=== PATIENT | male | born 1975 ===

== ENCOUNTER 2017-12-07 00:28 | Day surgery (SDC) | payer OTHER ==
[~2017-12-07] VITALS: Ht 193 cm; Wt 118.8 kg
[~2017-12-07 00:28] MED LIST: HYDR-385 PO
[2017-12-07 12:06] VITALS: BP 139/86
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
[2017-12-07] MEDS ORDERED: ceFAZolin(*) 2GM/D5W 50ML 50 ML IVPB ONE (12:30)
[2017-12-07] MEDS ORDERED: NORMOSOL R SOLN(*) 1000 ML BAG 1,000 ML IV PRN (12:30)
[2017-12-07] MEDS ORDERED: MIDAZOLAM 2 MG/2 ML VIAL IVP PRN (12:30)
[2017-12-07] MEDS ORDERED: FAMOTIDINE 20 MG TAB PO ONE (12:30)
[2017-12-07] MEDS ORDERED: CELECOXIB 200 MG CAP PO ONE (12:30)
[2017-12-07] MEDS ORDERED: LIDOCAINE/SOD BICARB 8.4% SYR ID ONE (12:30)
[2017-12-07] MEDS ORDERED: ROPIVACAINE 0.2% 20 ML VIAL ONE (12:38)
[2017-12-07] MEDS ORDERED: fentaNYL CITR 100 MCG/2 ML AMP ONE ×3 (14:22→16:59)
[2017-12-07] MEDS ORDERED: BACITRACIN/POLYMY B OINT 15 GM TP ONE (15:42)
[2017-12-07] MEDS ORDERED: PROPOFOL EMUL(*) 10MG/ML 20 ML 40 ML ONE (16:20)
[2017-12-07] MEDS ORDERED: ONDANSETRON 4 MG/2 ML VIAL ONE (16:20)
[2017-12-07] MEDS ORDERED: DEXAMETHASONE SOD PHOS 10MG/ML ONE (16:20)
[2017-12-07] MEDS ORDERED: KETOROLAC 30 MG/ML VIAL ONE (16:20)
[2017-12-07] MEDS ORDERED: PER PO ×3 (17:00→17:03)
[2017-12-07] MEDS ORDERED: CEPH500T7 PO ×2 (17:00→17:04)
--- NOTE | 2017-12-07 17:05 | OPERATIVE REPORT 1 ---
EVENT DATE: December 07, 2017 SURGEON: Joel Motley MD ANESTHESIOLOGIST: Minh Abreu MD ANESTHESIA: General. GEAR CODING MACHINE OPERATOR: Pedro Santoyo PA-C PREOPERATIVE DIAGNOSIS Right wrist scaphoid fracture with comminuted fracture of proximal first metacarpal. POSTOPERATIVE DIAGNOSIS Right wrist scaphoid fracture with comminuted fracture of proximal first metacarpal. PROCEDURES PERFORMED 1. Open reduction and internal fixation of comminuted proximal first metacarpal fracture. 2. Open reduction and anterior fixation of scaphoid fracture proximal pole. ESTIMATED BLOOD LOSS Minimal. INTRAVENOUS FLUIDS Crystalloid 1000, no colloid. COMPLICATIONS No complications. IMPLANTS USED OpenSpanartis H plate eight-hole. A Mini Acutrak screw. SPECIMENS No specimens. SUMMARY OF PROCEDURE The patient was brought into the operating room and placed on the OR table in the supine position. After obtaining adequate general anesthesia, the right upper extremity was prepped and draped in the usual sterile fashion. The limb was exsanguinated, and the tourniquet was inflated to 250 mmHg. We started with the scaphoid. A dorsal mini open technique was utilized, making the incision just ulnar to the Terrance tubercle, extending distally. The tendons were retracted, and the capsule was incised. There was a hemarthrosis that was removed from the wrist and irrigated. We identified the fracture line and the scaphoid, marked the apex of the scaphoid, and then placed a guidewire down it. After drilling the trailing and leading edge, we placed a screw and got very nice compression. The fracture appeared anatomically reduced. We checked several different planes on x-rays to ensure that the axis of the screw was mid axis on the scaphoid. We then irrigated the wound and repaired the capsule by using 4-0 Vicryl, after which it was irrigated one more time before closing the distal aspect of the retinaculum that had been divided for exposure. This was done with 4-0 FiberWire. We irrigated one last time, placed a moist Ray-Elvis, and then moved on to the thumb. A dorsal longitudinal incision was made over the base of the first metacarpal, deepened through skin and subcutaneous tissue. The EPB, EPL, and abductor pollicis longus tendons were retracted. I exposed the dorsal surface of the bone and then used a Choi elevator to further expose this region. The fracture was highly comminuted, and we initially did longitudinal traction to assist with getting the elements together and then placed K-wires. I had to use suture to repair some of the smaller fragments on the dorsal surface and bring them together by first placing drill holes in the bone with a small K-wire and then passing FiberWire suture. This had a nice reduction on the dorsal surface. There was a spike on the radial side that was a little bit displaced, but the critical element, which was the portion that had the anterior oblique ligament, was reducible and held with a wire. We then fitted an eight-hole H plate with locking screws and used them to secure the fracture. We then moved the fracture and progressively removed K-wires to ensure that it was still stable. All seemed well even with all K-wires removed. The wound was irrigated. We closed the capsule with 4-0 FiberWire, removed the vessel loop that had been placed on the radial artery and vena comitantes and then deflated the tourniquet. There was no additional significant bleeding. What bleeding there was was stopped with bipolar cautery. We then irrigated a final time at both incisions and used nylon to close the wounds. A thumb spica splint was placed, followed by awakening the patient and transferring him to the post- anesthesia care unit in stable condition. JORGE
[2017-12-07] MEDS ORDERED: oxyCODONE HCL 5 MG CAP ONE (17:24)
[2017-12-07] MEDS ORDERED: OXYC-823 PO (17:26)
[2017-12-07 17:30] VITALS: BP 133/82
[2017-12-07 17:45] VITALS: BP 128/75
[2017-12-07 17:58] VITALS: BP 145/84
[2017-12-07 18:00] VITALS: BP 143/84
== END 2017-12-07 17:30 | disposition home or self-care (01) ==
LOC: OR 00:28
PROVIDERS: ATTEND Orthopaedic Surgery Hand Surgery
DX: S62.001A Unspecified fracture of navicular [scaphoid] bone of right wrist, initial encounter for closed fracture (principal); S62.201A Unspecified fracture of first metacarpal bone, right hand, initial encounter for closed fracture
CPT/HCPCS: 25628; 26615; 71046; J1100; J1885; J2250; J2405; J2704; J2795; J3010; 76000; A4565; C1713; C1769; J0690